=== PATIENT | female | born 1975 | race Caucasian/White ===

== ENCOUNTER 2017-01-12 21:45 | Emergency (ER) | payer OTHER ==
[~2017-01-12] VITALS: Ht 157.5 cm; Wt 60.0 kg
--- NOTE | 2017-01-12 22:08 | PD ---
HPI Chief Complaint: Psychiatric Symptoms Time Seen by Provider: 22:08 Travel History International Travel<30 days: No Contact w/Intl Traveler<30days: No History of Present Illness HPI 41-year-old female presents to ED via EMS under Link act by [facility]'s office for psychiatric evaluation. According to Link act paper work the patient is under the influence of narcotics. According to the paperwork she endorsed taking OxyContin, Ativan, tramadol and Nucynta to officers who brought her in. Paperwork states that EMS was called to the scene because the patient became unresponsive. On presentation the patient is alert, sitting upright in the stretcher. She denies suicidal or homicidal ideation. She states that she has a history of pseudotumor cerebri, pseudoseizure, chronic pain. She states that she is prescribed pain medications for her chronic pain issues. She states that she recently discontinued taking OxyContin and is now taking Nucynta instead. She states that her became upset that she would not give medications to her [id number] who was experiencing some pain. She states that she went to bed and woke up with the police knocking on her bedroom door. She denies psychiatric history, history of attempted suicide a history of psychiatric hospitalization. She denies somatic complaints on presentation. She states that she feels safe at home despite the fact that her is "angry." LMP approximately one month ago. PFSH Social History Tobacco Use: No Allergies-Medications (Allergen,Severity, Reaction): Coded Allergies: Fioricet (Verified Allergy, Severe, 01/12/17) Gabapentin (Verified Allergy, Severe, 01/12/17) Ibuprofen (Verified Allergy, Severe, 01/12/17) Naproxen (Verified Allergy, Severe, 01/12/17) Savella (Verified Allergy, Severe, 01/12/17) Reported Meds & Prescriptions Reported Meds & Active Scripts Active Reported Tramadol (Tramadol HCl) 50 Mg Tab 100 Mg PO Q6H PRN Lorazepam 1 Mg Tab 1 Mg PO Q6H PRN Oxycodone-Acetaminophen 10-325 mg Tab 1 Tab PO Q6HR Nucynta (Tapentadol) 100 Mg Tab 100 Mg PO BID PRN Lyrica (Pregabalin) 150 Mg Cap 150 Mg PO BID Lisinopril 20 Mg Tab 20 Mg PO DAILY Review of Systems Except as stated in HPI: all other systems reviewed are Neg Physical Exam Narrative GENERAL: Well-nourished, well-developed female in no acute distress. PSYCHIATRIC: No delusional thought processes. No hallucinations. She is occasionally tearful during the examination. SKIN: Focused skin assessment warm/dry. HEAD: Normocephalic. EYES: No scleral icterus. No injection or drainage. NECK: Supple, trachea midline. No JVD or lymphadenopathy. CARDIOVASCULAR: Regular rate and rhythm without murmurs, gallops, or rubs. 2+ DP and radial pulses bilaterally. RESPIRATORY: Breath sounds clear and equal bilaterally. No accessory muscle use. GASTROINTESTINAL: Abdomen soft, non-tender, nondistended. Active bowel sounds. MUSCULOSKELETAL: No cyanosis, or edema. Patient is ambulatory moves extremities spontaneously. BACK: Nontender without obvious deformity. No CVA tenderness. Data Data Last Documented VS Vital Signs Date Time Temp Pulse Resp B/P Pulse Ox O2 Delivery O2 Flow Rate FiO2 01/13/17 09:29 77 16 141/75 100 01/13/17 08:03 Room Air 01/12/17 22:19 98.1 Orders Complete Blood Count With Diff (01/12/17 22:29) Comprehensive Metabolic Panel (01/12/17 22:29) Psych Screen (01/12/17 22:29) Drug Screen, Random Urine (01/12/17 22:29) Alcohol (Ethanol) (01/12/17 22:29) Diet Regular Basic (01/13/17 Breakfast) Labs Laboratory Tests Test 01/12/17 01/13/17 23:05 02:00 White Blood Count 11.5 TH/MM3 Red Blood Count 4.12 MIL/MM3 Hemoglobin 9.4 GM/DL Hematocrit 30.6 % Mean Corpuscular Volume 74.2 FL Mean Corpuscular Hemoglobin 22.8 PG Mean Corpuscular Hemoglobin 30.7 % Concent Red Cell Distribution Width 20.2 % Platelet Count 232 TH/MM3 Mean Platelet Volume 9.5 FL Neutrophils (%) (Auto) 70.4 % Lymphocytes (%) (Auto) 20.0 % Monocytes (%) (Auto) 8.3 % Eosinophils (%) (Auto) 0.9 % Basophils (%) (Auto) 0.4 % Neutrophils # (Auto) 8.1 TH/MM3 Lymphocytes # (Auto) 2.3 TH/MM3 Monocytes # (Auto) 1.0 TH/MM3 Eosinophils # (Auto) 0.1 TH/MM3 Basophils # (Auto) 0.1 TH/MM3 CBC Comment AUTO DIFF Differential Comment AUTO DIFF CONFIRMED Ovalocytes 1+ Sodium Level 139 MEQ/L Potassium Level 4.2 MEQ/L Chloride Level 108 MEQ/L Carbon Dioxide Level 24.2 MEQ/L Anion Gap 7 MEQ/L Blood Urea Nitrogen 8 MG/DL Creatinine 0.74 MG/DL Estimat Glomerular Filtration 87 ML/MIN Rate Random Glucose 85 MG/DL Calcium Level 8.4 MG/DL Total Bilirubin 0.3 MG/DL Aspartate Amino Transf 34 U/L (AST/SGOT) Alanine Aminotransferase 26 U/L (ALT/SGPT) Alkaline Phosphatase 100 U/L Total Protein 7.7 GM/DL Albumin 3.6 GM/DL Ethyl Alcohol Level LESS THAN 3 MG/DL Urine Opiates Screen NEG Urine Barbiturates Screen NEG Urine Amphetamines Screen NEG Urine Benzodiazepines Screen NEG Urine Cocaine Screen NEG Urine Cannabinoids Screen NEG MDM Medical Decision Making Medical Screen Exam Complete: Yes Emergency Medical Condition: Yes Differential Diagnosis Adjustment disorder versus anxiety versus bipolar versus depression versus dementia versus electrolyte disorder versus malingering versus mood disorder versus ODD versus psychosis versus PTSD versus schizophrenia versus schizoaffective disorder versus substance-induced mood disorder versus other Narrative Course 41-year-old female presents to ED via EMS under Link act by [facility]'s office for psychiatric evaluation. According to Link act paper work the patient is under the influence of narcotics. According to the paperwork she endorsed taking OxyContin, Ativan, tramadol and Nucynta to officers who brought her in. Paperwork states that EMS was called to the scene because the patient became unresponsive. On presentation the patient is alert, sitting upright in the stretcher. She denies suicidal or homicidal ideation. She states that she has a history of pseudotumor cerebri, pseudoseizure, chronic pain. She states that she is prescribed pain medications for her chronic pain issues. She states that she recently discontinued taking OxyContin and is now taking Nucynta instead. She states that her became upset that she would not give medications to her [id number] who was experiencing some pain. She states that she went to bed and woke up with the police knocking on her bedroom door. She denies psychiatric history, history of attempted suicide a history of psychiatric hospitalization. She denies somatic complaints on presentation. She states that she feels safe at home despite the fact that her is "angry." LMP approximately one month ago. Review of the force reveals that the patient is written prescriptions for tramadol, lorazepam, [place] and OxyContin by the same provider monthly for the last year. Vitals reviewed. Patient is tachycardic on presentation. Physical exam reveals an alert female in no acute distress. Chest clear to auscultation bilaterally, abdomen soft, nontender, no CVA tenderness. Equal strength in bilateral extremities. No lower extremity edema. IV was established. CBC, CMP, UA, tox screen and alcohol level pending. Psych screen ordered. Anticipate medical clearance. Please see psychiatric notes for disposition. Diagnosis Primary Impression: Medical clearance for psychiatric admission Nancy Ma Jan 12, 2017 22:08
[2017-01-12 22:19] VITALS: BP 192/93; PULSE 102; RESP 18; TEMP 98.1; O2SAT 98
[2017-01-12 23:23] LABS: AUTOMATED NEUTROPHIL # 8.1 TH/MM3 (1.8-7.7); BASOPHIL # 0.1 TH/MM3 (0-0.2); BASOPHIL % 0.4 % (0.0-2.0); EOSINOPHIL # 0.1 TH/MM3 (0-0.4); EOSINOPHIL % 0.9 % (0.0-4.0); HEMATOCRIT 30.6 % (35.0-46.0); LYMPHOCYTE # 2.3 TH/MM3 (1.0-4.8); MEAN CELL VOLUME 74.2 FL (80.0-100.0); MEAN CORPUSCULAR HEMOGLOBIN 22.8 PG (27.0-34.0); MEAN CORPUSCULAR HGB CONC 30.7 % (32.0-36.0); MONO % 8.3 % (0.0-8.0); NEUT % 70.4 % (16.0-70.0); PLATELET COUNT 232 TH/MM3 (150-450); RED BLOOD COUNT 4.12 MIL/MM3 (4.00-5.30); RED CELL DISTRIBUTION WIDTH 20.2 % (11.6-17.2); WHITE BLOOD COUNT 11.5 TH/MM3 (4.0-11.0)
[2017-01-12 23:26] LABS: HEMO FLAGS AUTO DIFF
[2017-01-12 23:30] VITALS: BP 188/94; PULSE 84; RESP 18; O2SAT 100
[2017-01-12 23:49] LABS: OVALOCYTES 1+ (NORMAL); SCAN/DIFF AUTO DIFF CONFIRMED
[2017-01-12 23:54] LABS: ALKALINE PHOSPHATASE 100 U/L (45-117); ALT (GPT) 26 U/L (10-53); ANION GAP 7 MEQ/L (5-15); AST (GOT) 34 U/L (15-37); BICARBONATE 24.2 MEQ/L (21.0-32.0); BLOOD UREA NITROGEN 8 MG/DL (7-18); CHLORIDE 108 MEQ/L (98-107); GLOMERULAR FILTRATION RATE 87 ML/MIN (>89); POTASSIUM 4.2 MEQ/L (3.5-5.1); SODIUM (NA) 139 MEQ/L (136-145); TOTAL BILIRUBIN ADULT 0.3 MG/DL (0.2-1.0)
[2017-01-13 00:30] VITALS: BP 145/88; PULSE 82; RESP 18; O2SAT 100
--- NOTE | 2017-01-13 01:14 | PD ---
Physical Exam Narrative I, Dr. Amaral, have reviewed the advance practice practitioner's documentation and am in agreement, met with the patient face to face, made the diagnosis, and the medical decision making was done by me. *My assessment and Findings: Anxiety vs. opiate dependence vs. chronic pain 41yo F Link Act for being a threat to herself and opioid abuse. Pt is AAOx3 here and states she has pain medication for fibromyalgia and lorazepam for anxiety. Labs reviewed, mild leukocytosis at 11.5. H/H is low at 9.4/30.6, pt state she has anemia and has PMD to follow up with for IV iron. CMP unremarkable. Alcohol negative. Pt medically clear for psych evaluation. Repeat HR is 80s. Data Data Last Documented VS Vital Signs Date Time Temp Pulse Resp B/P Pulse Ox O2 Delivery O2 Flow Rate FiO2 01/12/17 22:19 98.1 102 18 192/93 98 Orders Complete Blood Count With Diff (01/12/17 22:29) Comprehensive Metabolic Panel (01/12/17 22:29) Psych Screen (01/12/17 22:29) Drug Screen, Random Urine (01/12/17 22:29) Alcohol (Ethanol) (01/12/17 22:29) Labs Laboratory Tests Test 01/12/17 23:05 White Blood Count 11.5 TH/MM3 Red Blood Count 4.12 MIL/MM3 Hemoglobin 9.4 GM/DL Hematocrit 30.6 % Mean Corpuscular Volume 74.2 FL Mean Corpuscular Hemoglobin 22.8 PG Mean Corpuscular Hemoglobin 30.7 % Concent Red Cell Distribution Width 20.2 % Platelet Count 232 TH/MM3 Mean Platelet Volume 9.5 FL Neutrophils (%) (Auto) 70.4 % Lymphocytes (%) (Auto) 20.0 % Monocytes (%) (Auto) 8.3 % Eosinophils (%) (Auto) 0.9 % Basophils (%) (Auto) 0.4 % Neutrophils # (Auto) 8.1 TH/MM3 Lymphocytes # (Auto) 2.3 TH/MM3 Monocytes # (Auto) 1.0 TH/MM3 Eosinophils # (Auto) 0.1 TH/MM3 Basophils # (Auto) 0.1 TH/MM3 CBC Comment AUTO DIFF Differential Comment AUTO DIFF CONFIRMED Ovalocytes 1+ Sodium Level 139 MEQ/L Potassium Level 4.2 MEQ/L Chloride Level 108 MEQ/L Carbon Dioxide Level 24.2 MEQ/L Anion Gap 7 MEQ/L Blood Urea Nitrogen 8 MG/DL Creatinine 0.74 MG/DL Estimat Glomerular Filtration 87 ML/MIN Rate Random Glucose 85 MG/DL Calcium Level 8.4 MG/DL Total Bilirubin 0.3 MG/DL Aspartate Amino Transf 34 U/L (AST/SGOT) Alanine Aminotransferase 26 U/L (ALT/SGPT) Alkaline Phosphatase 100 U/L Total Protein 7.7 GM/DL Albumin 3.6 GM/DL Ethyl Alcohol Level LESS THAN 3 MG/DL MDM Supervised Visit with IRAIS: Yes Diagnosis Primary Impression: Anxiety Yuni Amaral DO Jan 13, 2017 01:14
[2017-01-13 01:30] VITALS: BP 142/80; PULSE 69; RESP 18; O2SAT 100
[2017-01-13 02:16] VITALS: BP 139/78; PULSE 76; RESP 18; O2SAT 100
[2017-01-13] MEDS ORDERED: OXYC1TAB36 PO (02:20)
[2017-01-13] MEDS ORDERED: NUCY100T4 PO (02:20)
[2017-01-13] MEDS ORDERED: LISI-515 PO (02:20)
[2017-01-13] MEDS ORDERED: LORA1TAB12 PO (02:20)
[2017-01-13] MEDS ORDERED: LYRI150C PO (02:20)
[2017-01-13] MEDS ORDERED: TRAM50TA PO (02:20)
[2017-01-13 02:37] LABS: AMPHETAMINE, URINE NEG (NEG); BARBITURATES, URINE NEG (NEG); COCAINE, URINE NEG (NEG)
[2017-01-13 06:00] VITALS: BP 136/82; PULSE 84; RESP 16; O2SAT 97
[2017-01-13 08:03] VITALS: BP 128/80; PULSE 84; RESP 16; O2SAT 100
--- NOTE | 2017-01-13 08:09 | PD ---
History of Present Illness Chief Complaint: Psychiatric Symptoms Time Seen by Provider: 08:00 Travel History International Travel<30 Days: No Contact w/Intl Traveler<30days: No Known affected area: No Legal Status Legal Status: Link Act Link Act Signed By: Comal Co. Velez History of Present Illness: History of Present Illness HPI 41-year-old female with no previous psychiatric history presents to ED via EMS under Link act initiated by [facility]'s office. According to the Link act paper work the patient is under the influence of narcotics and she was found unresponsive by her who contacted authorities. According to the paperwork she endorsed taking OxyContin, Ativan, tramadol and Nucynta to officers who brought her in. EMR is reviewed. Current toxicology is negative for any substances. No previous contact with [facility]. Case is discussed with staff. Patient seen. Record reviewed. Patient alert and oriented, engaging and calm. Speech is clear and logical, goal directed. No pressure of speech.Her thoughts are clear, logical and organized. There is no indication that she is experiencing any hallucinatory process, no delusions and no paranoia. Patient admits to episodes of anxiety that she takes Ativan for. There is no symptom of depression or florencia. She denies any suicidal or homicidal ideation, intent or plan. She states that she had taken her evening medication that she is prescribed and fell asleep on the floor while she was folding some laundry. Her became concerned that she had taken extra medication. She denies vehemently that she took any extra medication, " I have no reason to hurt myself. I love my children and I would not do anything to hurt them". PFSH Past Medical History Anxiety: Yes Depression: Yes Diminished Hearing: No Fibromyalgia: Yes Hypertension: Yes Insomnia: Yes Seizures: Yes (psuedo ) Tetanus Vaccination: Unknown ?: Not LMP: 12/12/2016 : 6 Para: 4 Miscarriage: 0 : 1 Past Surgical History Genitourinary Surgery: Yes (gastric bypass) Gynecologic Surgery: Yes (D&C) Other Surgery: Yes (tumor removed from left upper leg) Psychiatric History Psychiatric History Hx Psychiatric Treatment: PT DENIES, PATIENT STATES SHE HAS ANXIETY AND RECEIVES ATIVAN FRON HER PCP History of Inpatient Treatment: No Guns or firearms in home: No Social History Born and raised in [place], [place]. x 21 years. Lives with and her children. Has 4 children and lives with children and her mother in law. On disability for medical reasons. Hx Alcohol Use: No Hx Tobacco Use: No Hx Substance Use: No (PT DENIES) Hx of Substance Use Treatment: No Family Psychiatric History None reported Allergies-Medications (Allergen,Severity, Reaction): Coded Allergies: Fioricet (Verified Allergy, Severe, 01/12/17) Gabapentin (Verified Allergy, Severe, 01/12/17) Ibuprofen (Verified Allergy, Severe, 01/12/17) Naproxen (Verified Allergy, Severe, 01/12/17) Savella (Verified Allergy, Severe, 01/12/17) Reported Meds & Prescriptions Reported Meds & Active Scripts Active Reported Tramadol (Tramadol HCl) 50 Mg Tab 100 Mg PO Q6H PRN Lorazepam 1 Mg Tab 1 Mg PO Q6H PRN Oxycodone-Acetaminophen 10-325 mg Tab 1 Tab PO Q6HR Nucynta (Tapentadol) 100 Mg Tab 100 Mg PO BID PRN Lyrica (Pregabalin) 150 Mg Cap 150 Mg PO BID Lisinopril 20 Mg Tab 20 Mg PO DAILY Review of Systems Endocrine: DENIES: Abnorml menstrual pattern, Heat/cold intolerance, Polydipsia , Polyuria, Polyphagia Eyes: COMPLAINS OF: Vision loss Ears, nose, mouth, throat: DENIES: Tinnitus, Hearing loss, Vertigo, Nasal discharge, Oral lesions, Throat pain, Hoarseness, Ear Pain, Running Nose, Epistaxis, Sinus Pain, Toothache, Odynophagia Respiratory: DENIES: Apneas, Cough, Snoring, Wheezing, Hemoptysis, Sputum production, Shortness of breath Cardiovascular: DENIES: Chest pain, Palpitations, Syncope, Dyspnea on Exertion , PND, Lower Extremity Edema, Orthopnea, Claudication Gastrointestinal: DENIES: Abdominal pain, Black stools, Bloody stools, Constipation, Diarrhea, Nausea, Vomiting, Difficulty Swallowing, Anorexia Genitourinary: DENIES: Abnormal vaginal bleeding, Dysmenorrhea, Dyspareunia, Sexual dysfunction, Urinary frequency, Urinary incontinence, Urgency, Hematuria , Dysuria, Nocturia, Vaginal discharge Musculoskeletal: COMPLAINS OF: Muscle aches, Back pain Integumentary: DENIES: Abnormal pigmentation, Pruritus, Rash, Nail changes, Breast masses, Breast skin changes, Nipple discharge Hematologic/lymphatic: DENIES: Bruising, Lymphadenopathy Immunologic/allergic: DENIES: Eczema, Urticaria Neurologic: COMPLAINS OF: Seizures (reports pseudo seizures) Psychiatric: COMPLAINS OF: Anxiety Exam Alert: Yes [place]: Person (ox4) Mood: Calm Affect: Appropriate Speech: Clear, Logical Eye Contact: Normal Memory Intact: Comment (No impairment) Hallucinations: Other (negative) Suicidal: Ideation (denies any) Homicidal: Ideation (denies any) Insight/Judgement Fair. not impaired MDM Medical Decision Making Medical Record Reviewed: Yes Assessment/Plan 41 year old female under a BA after her found her unresponsive. Patient reports that she had taken her nighttime medication which is prescribed to her and had fallen asleep. She denies that she took any extra medication or that she took medications in an attempt at harming herself. her toxicology is negative at time of ED arrival. At this time denies any suicidal ideation and does not present any acute psychiatric symptomatology. States " I have children and I would,t do that". Patient does not meet BA criteria. Will lift BA and discharge Orders Complete Blood Count With Diff (01/12/17 22:29) Comprehensive Metabolic Panel (01/12/17 22:29) Psych Screen (01/12/17 22:29) Drug Screen, Random Urine (01/12/17 22:29) Alcohol (Ethanol) (01/12/17 22:29) Diet Regular Basic (01/13/17 Breakfast) Results Vital Signs Date Time Temp Pulse Resp B/P Pulse Ox O2 Delivery O2 Flow Rate FiO2 01/13/17 06:00 84 16 136/82 97 Room Air 01/13/17 02:16 76 18 139/78 100 Room Air 01/13/17 01:30 69 18 142/80 100 Room Air 01/13/17 00:30 82 18 145/88 100 Room Air 01/12/17 23:30 84 18 188/94 100 Room Air 01/12/17 22:19 98.1 102 18 192/93 98 Laboratory Tests Test 01/12/17 01/13/17 23:05 02:00 White Blood Count 11.5 Red Blood Count 4.12 Hemoglobin 9.4 Hematocrit 30.6 Mean Corpuscular Volume 74.2 Mean Corpuscular Hemoglobin 22.8 Mean Corpuscular Hemoglobin 30.7 Concent Red Cell Distribution Width 20.2 Platelet Count 232 Mean Platelet Volume 9.5 Neutrophils (%) (Auto) 70.4 Lymphocytes (%) (Auto) 20.0 Monocytes (%) (Auto) 8.3 Eosinophils (%) (Auto) 0.9 Basophils (%) (Auto) 0.4 Neutrophils # (Auto) 8.1 Lymphocytes # (Auto) 2.3 Monocytes # (Auto) 1.0 Eosinophils # (Auto) 0.1 Basophils # (Auto) 0.1 CBC Comment AUTO DIFF Differential Comment AUTO DIFF CONFIRMED Ovalocytes 1+ Sodium Level 139 Potassium Level 4.2 Chloride Level 108 Carbon Dioxide Level 24.2 Anion Gap 7 Blood Urea Nitrogen 8 Creatinine 0.74 Estimat Glomerular Filtration 87 Rate Random Glucose 85 Calcium Level 8.4 Total Bilirubin 0.3 Aspartate Amino Transf 34 (AST/SGOT) Alanine Aminotransferase 26 (ALT/SGPT) Alkaline Phosphatase 100 Total Protein 7.7 Albumin 3.6 Ethyl Alcohol Level LESS THAN 3 Urine Opiates Screen NEG Urine Barbiturates Screen NEG Urine Amphetamines Screen NEG Urine Benzodiazepines Screen NEG Urine Cocaine Screen NEG Urine Cannabinoids Screen NEG Diagnosis Primary Impression: Anxiety Psychiatrically Cleared: Yes Med/ Other Pt Specific Info: No Change to Meds Disposition: 01 DISCHARGE HOME Condition: Stable Antionette Andres DAKSHA Jan 13, 2017 08:09
[2017-01-13 09:29] VITALS: BP 141/75
== END 2017-01-13 10:44 | disposition home or self-care (01) ==
LOC: NEPE 21:45 → NEPD 01-13 10:44
DX: F41.9 Anxiety disorder, unspecified (principal); M79.7 Fibromyalgia; D64.9 Anemia, unspecified; Z79.899 Other long term (current) drug therapy
CPT/HCPCS: 80053; 80307; 85025; 99284

== ENCOUNTER 2017-12-27 03:50 | Observation (INO) | payer OTHER ==
[~2017-12-27 03:50] MED LIST: BISACODYL 10 MG SUPP RECTAL PRN; LACTULOSE SYRUP 20 GM/30 ML CUP PO PRN; LISI-515 PO; LYRI150C PO; MAGNESIUM HYDROXIDE SUSP 30 ML CUP PO PRN; NALOXONE HCL 0.4 MG/ML AMP IV PUSH PRN; ONDANSETRON HCL 4 MG/2 ML VIAL IVP PRN; OXYC1TAB36 PO; SENNOSIDES 8.6 MG TAB PO PRN; SODIUM CHLORIDE 0.9% FLUSH 10 ML FLUSH IV FLUSH PRN; TRAM50TA PO; WALKER/ADULT/FO1 MIS
[2017-12-27] MEDS ORDERED: D5-1/2 NS + KCL 20 MEQ INJ 1,000 ML IV SCH (04:00)
[2017-12-27] MEDS ORDERED: IOHEXOL 350 MG/ML 10 ML VIAL (for RAD DIAG) IVCONTRAST ONE (04:01)
[2017-12-27 05:02] VITALS: BP 158/86; PULSE 87; RESP 18; TEMP 98.4; O2SAT 99
[2017-12-27 07:38] VITALS: BP 120/75; PULSE 81; RESP 18; TEMP 98.1; O2SAT 99
[2017-12-27] MEDS ORDERED: DOCUSATE SODIUM 50 MG/SENNA 8.6 MG TAB PO SCH (09:00)
[2017-12-27] MEDS ORDERED: SODIUM CHLORIDE 0.9% FLUSH 10 ML FLUSH IV FLUSH SCH (09:00)
[2017-12-27 11:33] VITALS: BP 122/78; PULSE 75; RESP 18; TEMP 98.4; O2SAT 99
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
[2017-12-27 15:26] VITALS: BP 118/75; PULSE 68; RESP 18; TEMP 97.9; O2SAT 97
[2017-12-27] MEDS ORDERED: IRON DEXTRAN 100 MG/2 ML VIAL IV PUSH ONE ×2 (16:00→18:00)
--- NOTE | 2017-12-27 16:18 | RADRPT ---
EXAM DATE/TIME: 12/27/2017 15:54 [facility] COMPARISON: No previous studies available for comparison. INDICATIONS : Chest pain, short of breath. IV CONTRAST: 75 cc Omnipaque 350 (iohexol) IV RADIATION DOSE: 7.37 CTDIvol (mGy) MEDICAL HISTORY : Seizures. Hypertension. asthma SURGICAL HISTORY : None. ENCOUNTER: Initial ACUITY: 1 day PAIN SCALE: 3/10 LOCATION: chest TECHNIQUE: Volumetric scanning of the chest was performed using a pulmonary embolism protocol MIP images were re constructed. Using automated exposure control and adjustment of the mA and/or kV according to patien t size, radiation dose was kept as low as reasonably achievable to obtain optimal diagnostic quality images. DICOM format image data is available electronically for review and comparison. Follow-up recommendations for detected pulmonary nodules are based at a minimum on nodule size and pa tient risk factors according to Fleischner Society Guidelines. FINDINGS: PULMONARY ARTERIES: No filling defects are seen in the pulmonary arteries through the segmental level. LUNGS: There is no consolidation or pneumothorax . No concerning pulmonary nodule is visualized. PLEURAE: There is no pleural thickening or pleural effusion. MEDIASTINUM: There is good visualization of the great vessels of the middle mediastinum. No evidence of mediastin al or hilar adenopathy/mass. MUSCULOSKELETAL: Within normal limits for patient age. MISCELLANEOUS: The visualized upper abdominal organs demonstrate no acute abnormality. CONCLUSION: No evidence of pulmonary embolism Yasir Sue MD on December 27, 2017 at 16:12 Board Certified Radiologist. This report was verified electronically.
[2017-12-27] MEDS ORDERED: traMADol HCL 50 MG TAB PO PRN (17:30)
--- NOTE | 2017-12-27 17:30 | PD.AMA ---
Against Medical Advice Note Discharge Disposition: Against Medical Advice Pt Condition on Discharge: Stable AMA Statement Patient Melina Joyner has decided to leave the hospital against medical advice. This patient has the capacity to refuse care and understands the risks of leaving, including permanent disability and/or , and has had an opportunity to ask questions about her condition. The patient has been informed that she may return for care at any time, and follow up has been arranged/ advised. Naren Lincoln MD Dec 27, 2017 17:29
[2017-12-27] MEDS ORDERED: PREGABALIN 75 MG CAP PO SCH (18:00)
[2017-12-28] MEDS ORDERED: IRON DEXTRAN 100 MG/2 ML VIAL IV PUSH SCH (09:00)
== END 2017-12-27 19:19 | disposition left against medical advice (07) ==
LOC: NEDDLT 03:50 → NEPGCP 04:00
PROVIDERS: ADMIT Hospitalist; ATTEND Hospitalist
DX: G93.40 Encephalopathy, unspecified (principal); I10 Essential (primary) hypertension; J45.909 Unspecified asthma, uncomplicated; I48.91 Unspecified atrial fibrillation; D50.0 Iron deficiency anemia secondary to blood loss (chronic); G93.2 Benign intracranial hypertension; M79.7 Fibromyalgia; F44.5 Conversion disorder with seizures or convulsions; E16.2 Hypoglycemia, unspecified; E87.0 Hyperosmolality and hypernatremia; E86.0 Dehydration; Z86.73 Personal history of transient ischemic attack (TIA), and cerebral infarction without residual deficits; Z86.711 Personal history of pulmonary embolism; Z98.84 Bariatric surgery status
CPT/HCPCS: 70450; 71045; 71275; 80053; 80307; 81001; 82140; 82550; 82607; 84484; 84702; 85025; 85610; 85730; 93005; 96360; 99285; G0378; J3480; J7030; Q9967; J2310

== ENCOUNTER 2018-02-16 17:56 | Emergency (ER) | payer OTHER ==
[~2018-02-16] VITALS: Ht 157.5 cm; Wt 65.0 kg
[~2018-02-16 17:56] MED LIST changes: -BISACODYL 10 MG SUPP RECTAL PRN; -LACTULOSE SYRUP 20 GM/30 ML CUP PO PRN; -MAGNESIUM HYDROXIDE SUSP 30 ML CUP PO PRN; -NALOXONE HCL 0.4 MG/ML AMP IV PUSH PRN; -ONDANSETRON HCL 4 MG/2 ML VIAL IVP PRN; -SENNOSIDES 8.6 MG TAB PO PRN; -SODIUM CHLORIDE 0.9% FLUSH 10 ML FLUSH IV FLUSH PRN
[2018-02-16 18:33] VITALS: BP 149/104; PULSE 97; RESP 16; TEMP 98.1; O2SAT 99
[2018-02-16] MEDS ORDERED: SODIUM CHLOR 0.9% 1000 ML INJ 1,000 ML IV ONE (19:00)
[2018-02-16 19:07] LABS: ALBUMIN 3.4 GM/DL (3.4-5.0); AST (GOT) 30 U/L (15-37); BICARBONATE 21.5 MEQ/L (21.0-32.0); BLOOD UREA NITROGEN 12 MG/DL (7-18); CALCIUM 8.4 MG/DL (8.5-10.1); CHLORIDE 116 MEQ/L (98-107); CREATININE 0.66 MG/DL (0.50-1.00); GLOMERULAR FILTRATION RATE 99 ML/MIN (>89); GLUCOSE,RANDOM 89 MG/DL (74-106); SODIUM (NA) 149 MEQ/L (136-145)
[2018-02-16 19:08] LABS: ALT (GPT) 24 U/L (10-53)
[2018-02-16 19:18] LABS: ACETAMINOPHEN LESS THAN 2.0 MCG/ML (10.0-30.0); ALKALINE PHOSPHATASE 81 U/L (45-117); TOTAL BILIRUBIN ADULT 0.2 MG/DL (0.2-1.0); TOTAL PROTEIN 7.4 GM/DL (6.4-8.2)
[2018-02-16 19:46] LABS: HEMATOCRIT 29.6 % (35.0-46.0); MEAN CELL VOLUME 68.5 FL (80.0-100.0); MEAN CORPUSCULAR HEMOGLOBIN 20.9 PG (27.0-34.0); MEAN CORPUSCULAR HGB CONC 30.5 % (32.0-36.0); MEAN PLATELET VOLUME 9.1 FL (7.0-11.0); PLATELET COUNT 244 TH/MM3 (150-450); RED BLOOD COUNT 4.32 MIL/MM3 (4.00-5.30); RED CELL DISTRIBUTION WIDTH 19.8 % (11.6-17.2); WHITE BLOOD COUNT 8.8 TH/MM3 (4.0-11.0)
[2018-02-16 19:50] VITALS: BP 143/81; PULSE 98; RESP 20; TEMP 98.4; O2SAT 97
--- NOTE | 2018-02-16 19:51 | RADRPT ---
EXAM DATE: 02/16/2018 7:35 PM EDT AGE/SEX: 42 years / Female INDICATIONS: Altered mental status. CLINICAL DATA: This is the patient's initial encounter. Patient reports that signs and symptoms have been present for 1 day and indicates a pain score of 0/10. MEDICAL/SURGICAL HISTORY: Cardiovascular disease. Cerebrovascular disease. Seizure. None. RADIATION DOSE: 35.11 CTDI (mGy) ; Patient motion COMPARISON: [facility], CT BRAIN W/O CONTRAST, 12/26/2017. . TECHNIQUE: CT of the head without contrast. Using automated exposure control and adjustment of the mA and/or kV according to patient size, radiation dose was kept as low as reasonably achievable to ob tain optimal diagnostic quality images. FINDINGS: Study is degraded by motion artifact. Cerebrum: The ventricles are normal for age. No evidence of midline shift, mass lesion, hemorrhage or acute infarction. No extraaxial fluid collections are seen. Posterior Fossa: The cerebellum and brainstem are intact. The 4th ventricle is midline. The cerebe llopontine angle is unremarkable. Extracranial: The visualized portion of the orbits is intact. Skull: The calvaria is intact. No evidence of skull fracture. CONCLUSION: 1. No acute hemorrhage or mass effect identified. 2. The study is degraded by motion artifact. Electronically signed by: Art Araogn MD 02/16/2018 7:49 PM EDT
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
[2018-02-16 20:49] LABS: BANDS 2 % (0-6); LYMPHOCYTES 22 % (9-44); MONOCYTES 8 % (0-8); NEUTROPHIL # MANUAL DIFF 6.2 TH/MM3 (1.8-7.7); POLYS (SEG NEUTROPHILS) 68 % (16-70)
[2018-02-16 20:50] LABS: OVALOCYTES 1+ (NORMAL)
[2018-02-16 20:51] LABS: KERATOCYTES OCC (NORMAL); TEARDROP RBCS 1+ (NORMAL)
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
[2018-02-16 22:13] VITALS: BP 140/95; PULSE 96; RESP 16; TEMP 99.8; O2SAT 96
[2018-02-16] MEDS ORDERED: PREGABALIN 100 MG CAP PO ONE (22:15)
[2018-02-16] MEDS ORDERED: traMADol HCL 50 MG TAB PO ONE (22:15)
[2018-02-17] MEDS ORDERED: diphenhydrAMINE HCL 50 MG CAP PO ONE (02:45)
[2018-02-17 03:07] VITALS: BP 140/79; PULSE 85; RESP 16; TEMP 99.2; O2SAT 100
[2018-02-17 07:00] VITALS: BP 114/65; PULSE 83; RESP 18; TEMP 98.9; O2SAT 99
--- NOTE | 2018-02-17 07:52 | PD ---
History of Present Illness Chief Complaint: Psychiatric Symptoms Time Seen by Provider: 07:15 Travel History International Travel<30 Days: No Contact w/Intl Traveler<30days: No Known affected area: No Legal Status Legal Status: Link Act History of Present Illness: Patient is a 42-year-old female with one child who was transported to [facility] under a Link act by the [facility]'s office. The Link act states, " Melina walked into the bathroom at [facility] broke a glass bottle used a sharp piece of glass to self inflict a significant laceration to her hand." Patient states that yesterday she had a glass of wine and then went to get something to eat at [facility]. States, " this is the anniversary of the of my daughter at [facility], I know I was feeling really sad yesterday." States while in the bathroom at [facility] she started crying and was having a panic attack. She thinks she passed out and cut her wrist on something in the bathroom. She does not recall breaking a glass , but might have dropped the glass she has in hand. She states, " I have a beautiful 4 year old daughter named Marilyn and I would never hurt myself, I live for my little girl." Alcohol level on arrival was 214. Medical history of gastric bypass. She takes percocet and lyrica for fibromyalgia and pseudotumor cerebri. Last Link Act at [facility] on 01/12/17 or anxiety. Chart reviewed and discussed with nurse. Patient is in Room J 104 in [facility]. She states, " I slept really well last night." She is alert and oriented x4. She is well groomed and small in stature. Fund of knowledge is normal. Gait is steady and normal. 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 She has been on disability for 17 years due to her sight. She has a very supportive and family. She has good recent and remote recall. She has good concentration. No abnormal thoughts. Thought pattern is linear. Her mood is euthymic. Collateral : With patient's permission, I called her Ishan Mario at [phone]. He does not feel that he is suicidal. He feels she needs therapy and help for the loss of her child in 2007. He is willing to pick her up. Patient is at low risk for self harm or harm of others. She does not meet inpatient criteria. Patient has insurance and will follow up with private counseling . I also gave the family information about [facility]. Dx: Mood disorder, Substance induced; Anxiety PFSH Past Medical History Arthritis: Yes Asthma: Yes Autoimmune Disease: Yes (FIBROMYALGIA) Blood Disorders: No Anxiety: Yes Depression: Yes Heart Rhythm Problems: No Cancer: No Cardiovascular Problems: Yes High Cholesterol: No Chest Pain: No Congestive Heart Failure: No COPD: No Cerebrovascular Accident: Yes Diabetes: No Diminished Hearing: No Endocrine: No Fibromyalgia: Yes Gastrointestinal Disorders: No Genitourinary: No Hypertension: Yes Immune Disorder: No Implanted Vascular Access Dvce: No Insomnia: Yes Musculoskeletal: No Neurologic: No Psychiatric: Yes Reproductive: No Respiratory: Yes (ASTHMA) Immunizations Current: Yes Seizures: Yes (psuedo ) Sleep Apnea: No Thyroid Disease: No Tetanus Vaccination: Unknown Influenza Vaccination: No ?: Not : 6 Para: 4 Miscarriage: 0 : 1 Past Surgical History Genitourinary Surgery: Yes (gastric bypass) Gynecologic Surgery: Yes (D&C) Other Surgery: Yes (tumor removed from left upper leg) Psychiatric History Psychiatric History No psychiatric care in the past. Last Link Act on 01/12/17 for anxiety. Hx Psychiatric Treatment: PT DENIES, PATIENT STATES SHE HAS ANXIETY AND RECEIVES ATIVAN FRON HER PCP History of Inpatient Treatment: No Social History Hx Alcohol Use: Yes (daily ) Hx Tobacco Use: No Hx Substance Use: Yes (ALCOHOL) Substance Use Type: Alcohol Hx of Substance Use Treatment: No Allergies-Medications (Allergen,Severity, Reaction): Coded Allergies: acetaminophen (Verified Allergy, Severe, 02/16/18) baclofen (Verified Allergy, Severe, 02/16/18) butalbital (Unverified Allergy, Severe, 02/16/18) caffeine (Unverified Allergy, Severe, 02/16/18) furosemide (Unverified Allergy, Severe, 02/16/18) gabapentin (Verified Allergy, Severe, 02/16/18) ibuprofen (Verified Allergy, Severe, 02/16/18) latex (Verified Allergy, Severe, 02/16/18) levetiracetam (Verified Allergy, Severe, 02/16/18) lorazepam (Verified Allergy, Severe, 02/16/18) milnacipran (Verified Allergy, Severe, 02/16/18) naproxen (Verified Allergy, Severe, 02/16/18) Reported Meds & Prescriptions Reported Meds & Active Scripts Active Walker/Adult/Folding (Device) 1 Mis Mis 1 Ea .ROUTE DIRECTED Reported Tramadol (Tramadol HCl) 50 Mg Tab 100 Mg PO Q6H PRN Oxycodone-Acetaminophen 10-325 mg Tab 1 Tab PO Q6HR Lyrica (Pregabalin) 150 Mg Cap 150 Mg PO TID Mental Status Examination Appearance: Appropriate Consciousness: Alert Orientation: x4 Motor Activity: Normal gait Speech: Unremarkable Language: Adequate Fund of Knowledge: Adequate Attention and Concentration: Adequate Memory: Unremarkable Mood: Appropriate Affect: Appropriate Thought Process & Associations: Intact Thought Content: Appropriate Hallucination Type: None Delusion Type: None Suicidal Ideation: No Suicidal Plan: No Suicidal Intention: No Homicidal Ideation: No Homicidal Plan: No Homicidal Intention: No Insight: Adequate Judgment: Adequate MDM Medical Decision Making Assessment/Plan Patient is a 42year old female with four children. She was placed under a Link Act after being found on the floor in [facility]. Patient states that she is grieving about the loss of her child and that yesterday she was overwhelmed. She was in the bathroom at [facility] and passed out. She endorses no suicidal ideations. Patient is at low risk for self harm or harming others. states he is planning to get her counseling. I suggested that he also check [facility] as an option. Link Act lifted. Orders Orders Complete Blood Count With Diff (02/16/18 18:36) Comprehensive Metabolic Panel (02/16/18 18:36) Thyroid Stimulating Hormone (02/16/18 18:36) Psych Screen (02/16/18 18:36) Drug Screen, Random Urine (02/16/18 18:36) Alcohol (Ethanol) (02/16/18 18:36) Salicylates (Aspirin) (02/16/18 18:36) Tylenol (Acetaminophen) (02/16/18 18:36) Ct Brain W/O Iv Contrast(Rout) (02/16/18 ) Hand, Complete ([id number]) (02/16/18 ) Sodium Chlor 0.9% 1000 Ml Inj (Ns 1000 M (02/16/18 19:00) Ed Urine Pregnancytest Poc (02/16/18 21:51) Pregabalin (Lyrica) (02/16/18 22:15) Tramadol (Ultram) (02/16/18 22:15) Diet Regular Basic (02/17/18 Breakfast) Diphenhydramine (Benadryl) (02/17/18 02:45) Results Vital Signs Date Time Temp Pulse Resp B/P (MAP) Pulse Ox O2 Delivery O2 Flow Rate FiO2 02/17/18 03:07 99.2 85 16 140/79 (99) 100 Room Air 02/16/18 22:13 99.8 96 16 140/95 (110) 96 02/16/18 19:50 98.4 98 20 143/81 (101) 97 Room Air 02/16/18 18:33 98.1 97 16 149/104 (119) 99 Laboratory Tests Test 02/16/18 18:45 02/16/18 21:50 White Blood Count 8.8 Red Blood Count 4.32 Hemoglobin 9.0 Hematocrit 29.6 Mean Corpuscular Volume 68.5 Mean Corpuscular Hemoglobin 20.9 Mean Corpuscular Hemoglobin Concent 30.5 Red Cell Distribution Width 19.8 Platelet Count 244 Mean Platelet Volume 9.1 CBC Comment AUTO DIFF Differential Total Cells Counted 100 Neutrophils % (Manual) 68 Band Neutrophils % 2 Lymphocytes % 22 Monocytes % 8 Neutrophils # (Manual) 6.2 Differential Comment FINAL DIFF MANUAL Atypical Lymphocytes Platelet Estimate NORMAL Platelet Morphology Comment ENLARGED Tear Drop Cells 1+ Ovalocytes 1+ Keratocytes OCC Blood Urea Nitrogen 12 Creatinine 0.66 Random Glucose 89 Total Protein 7.4 Albumin 3.4 Calcium Level 8.4 Alkaline Phosphatase 81 Aspartate Amino Transf (AST/SGOT) 30 Alanine Aminotransferase (ALT/SGPT) 24 Total Bilirubin 0.2 Sodium Level 149 Potassium Level 3.2 Chloride Level 116 Carbon Dioxide Level 21.5 Anion Gap 12 Estimat Glomerular Filtration Rate 99 Thyroid Stimulating Hormone 3rd Gen 0.614 Salicylates Level LESS THAN 1.7 Acetaminophen Level LESS THAN 2.0 Ethyl Alcohol Level 214 Urine Opiates Screen NEG Urine Barbiturates Screen NEG Urine Amphetamines Screen NEG Urine Benzodiazepines Screen NEG Urine Cocaine Screen NEG Urine Cannabinoids Screen NEG Diagnosis Primary Impression: Alcohol-induced mood disorder Additional Impression: Anxiety Disposition: 01 DISCHARGE HOME Condition: Stable Problem Qualifiers Ju Sheppard Feb 17, 2018 07:52
--- NOTE | 2018-02-17 09:21 | PD ---
Physical Exam Date Seen by Provider: Feb 17, 2018 Narrative This patient was here as a Link Act. Yesterday was the anniversary of her daughter's . She drinks some alcohol. She then made a suicidal gesture. She is now sober and denies SI/HI. She has been evaluated by psychiatry and is felt to be stable for discharge to home. Data Data Last Documented VS Vital Signs Date Time Temp Pulse Resp B/P (MAP) Pulse Ox O2 Delivery O2 Flow Rate FiO2 02/17/18 07:00 98.9 83 18 114/65 (81) 99 Room Air Orders Orders Complete Blood Count With Diff (02/16/18 18:36) Comprehensive Metabolic Panel (02/16/18 18:36) Thyroid Stimulating Hormone (02/16/18 18:36) Psych Screen (02/16/18 18:36) Drug Screen, Random Urine (02/16/18 18:36) Alcohol (Ethanol) (02/16/18 18:36) Salicylates (Aspirin) (02/16/18 18:36) Tylenol (Acetaminophen) (02/16/18 18:36) Ct Brain W/O Iv Contrast(Rout) (02/16/18 ) Hand, Complete ([id number]) (02/16/18 ) Sodium Chlor 0.9% 1000 Ml Inj (Ns 1000 M (02/16/18 19:00) Ed Urine Pregnancytest Poc (02/16/18 21:51) Pregabalin (Lyrica) (02/16/18 22:15) Tramadol (Ultram) (02/16/18 22:15) Diet Regular Basic (02/17/18 Breakfast) Diphenhydramine (Benadryl) (02/17/18 02:45) Diet Regular Basic (02/17/18 Lunch) Ed Discharge Order (02/17/18 09:19) Labs Laboratory Tests Test 02/16/18 18:45 02/16/18 21:50 White Blood Count 8.8 TH/MM3 Red Blood Count 4.32 MIL/MM3 Hemoglobin 9.0 GM/DL Hematocrit 29.6 % Mean Corpuscular Volume 68.5 FL Mean Corpuscular Hemoglobin 20.9 PG Mean Corpuscular Hemoglobin Concent 30.5 % Red Cell Distribution Width 19.8 % Platelet Count 244 TH/MM3 Mean Platelet Volume 9.1 FL CBC Comment AUTO DIFF Differential Total Cells Counted 100 Neutrophils % (Manual) 68 % Band Neutrophils % 2 % Lymphocytes % 22 % Monocytes % 8 % Neutrophils # (Manual) 6.2 TH/MM3 Differential Comment FINAL DIFF MANUAL Atypical Lymphocytes % Platelet Estimate NORMAL Platelet Morphology Comment ENLARGED Tear Drop Cells 1+ Ovalocytes 1+ Keratocytes OCC Blood Urea Nitrogen 12 MG/DL Creatinine 0.66 MG/DL Random Glucose 89 MG/DL Total Protein 7.4 GM/DL Albumin 3.4 GM/DL Calcium Level 8.4 MG/DL Alkaline Phosphatase 81 U/L Aspartate Amino Transf (AST/SGOT) 30 U/L Alanine Aminotransferase (ALT/SGPT) 24 U/L Total Bilirubin 0.2 MG/DL Sodium Level 149 MEQ/L Potassium Level 3.2 MEQ/L Chloride Level 116 MEQ/L Carbon Dioxide Level 21.5 MEQ/L Anion Gap 12 MEQ/L Estimat Glomerular Filtration Rate 99 ML/MIN Thyroid Stimulating Hormone 3rd Gen 0.614 uIU/ML Salicylates Level LESS THAN 1.7 MG/DL Acetaminophen Level LESS THAN 2.0 MCG/ML Ethyl Alcohol Level 214 MG/DL Urine Opiates Screen NEG Urine Barbiturates Screen NEG Urine Amphetamines Screen NEG Urine Benzodiazepines Screen NEG Urine Cocaine Screen NEG Urine Cannabinoids Screen NEG MDM Supervised Visit with IRAIS: No Diagnosis Primary Impression: Alcohol-induced mood disorder Additional Impression: Anxiety Disposition: 01 DISCHARGE HOME Condition: Stable Karma Boucher MD Feb 17, 2018 09:21
== END 2018-02-17 10:02 | disposition home or self-care (01) ==
LOC: NEPE 17:56 → NEPJ 02-17 10:02
DX: F10.94 Alcohol use, unspecified with alcohol-induced mood disorder (principal); F41.9 Anxiety disorder, unspecified; S61.411A Laceration without foreign body of right hand, initial encounter; H54.7 Unspecified visual loss; J45.909 Unspecified asthma, uncomplicated; M79.7 Fibromyalgia; I10 Essential (primary) hypertension; Z86.73 Personal history of transient ischemic attack (TIA), and cerebral infarction without residual deficits; X99.9XXA Assault by unspecified sharp object, initial encounter
CPT/HCPCS: 12001; 70450; 73130; 80053; 80307; 84443; 84703; 85007; 85027; 99285; J7030; Q0163